=== PATIENT | male | born 1985 | race Asian ===

== ENCOUNTER 2023-08-31 21:27 | Emergency (ER) | payer OTHER ==
[~2023-08-31] VITALS: Ht 172.7 cm; Wt 71.8 kg
[2023-08-31 21:30] VITALS: TEMP 98.7
[2023-08-31 22:05] LABS: BILIRUBIN,URINE NEGATIVE (Neg); CLARITY,URINE CLEAR (Clear); COLOR,URINE YELLOW (Yellow); GLUCOSE, URINE NEGATIVE (Neg); KETONES,URINE NEGATIVE (Neg); LEUKOCYTE ESTERASE ,URINE NEGATIVE (Neg); NITRITES, URINE NEGATIVE (Neg); OCCULT BLOOD,URINE TRACE-INTACT (Neg); PROTEIN,URINE NEGATIVE (Neg)
[2023-08-31 22:07] LABS: UA COLLECTION TYPE CLN CATCH MIDSTREAM
[2023-08-31 22:08] VITALS: BP 125/76; PULSE 62; RESP 18; O2SAT 94
[2023-08-31 22:09] LABS: SQUAMOUS EPITHELIAL CELL,UR NONE SEEN /LPF (FEW)
[2023-08-31 22:10] LABS: BACTERIA,URINE NONE SEEN /HPF (Neg); RBC,URINE 0-2 /HPF (0-2); WBC,URINE NONE SEEN /HPF (0-4)
== END 2023-09-01 00:33 | disposition home or self-care (01) ==
LOC: ER 21:27
DX: N50.812 Left testicular pain (principal)
CPT/HCPCS: 76870; 81001; 93976; 99284